=== PATIENT | female | born 1965 | race Caucasian/White ===

== ENCOUNTER 2022-07-24 08:00 | Outpatient (CLI) | payer OTHER, SELFPAY ==
--- NOTE | 2022-07-24 08:15 | MR_ITS ---
[address] [address] Phone:?[phone] Fax:?[phone] Referring Physician Information: Reilly Malhotra M.D. [id number] [facility] [address] Phone:?[phone] Fax:?[phone] Patient:Avila Carrion D.O.B:?1965 Sex:?Female Phone:?[phone] [facility] MRN:?[id number] Exam Date:?07/24/2022 ? EXAM: MRI EXAMINATION OF THE RIGHT SHOULDER CLINICAL INFORMATION: Right shoulder pain. No history of surgery to this area. Concern for rotator cuff tendon tear. TECHNICAL INFORMATION: Coronal STIR as well as axial, sagittal and coronal PD and T2-weighted images were acquired. INTERPRETATION: Bones: There is no Hill-Sachs impaction deformity. No other occult fracture or osseous contusion. No other bone marrow edema pattern. Rotator Cuff: Series 5 image 12 as well as series 8 images 5 and 6 demonstrate an irregular 4 mm low signal intensity focus within the mid supraspinatus tendon insertion. Signal heterogeneity is identified with slender intrasubstance partial tearing of the surrounding tendon fibers. Mild infraspinatus tendinopathy. The teres minor tendon is intact. Mild subscapularis tendinopathy. No appreciable rotator cuff muscle belly atrophy. Coracoacromial arch: There is no discrete subacromial osseous spur. The bony acromiohumeral interval is wedging 7 mm. There is no thickening identified of the coracoacromial ligament. Acromioclavicular joint: Mild/early AC joint DJD. No deformity of the underlying supraspinatus tendon. Moderate fluid and edema signal within the subacromial/subdeltoid bursa areas. Biceps tendon: The long head biceps tendon is intact and nondisplaced from the bicipital groove. No evidence for a tendon tear or appreciable changes of tendinopathy. Glenohumeral joint and labrum: No significant glenohumeral joint effusion. No discrete loose body within the joint. Osteochondral surfaces appear relatively preserved. No discrete SLAP tear. No other definite evidence for labral tear. No discrete paralabral cyst is identified. CONCLUSION: 1. There is a small and irregular low signal intensity focus within the mid supraspinatus tendon insertion in keeping with calcium hydroxyapatite deposition/calcific tendinitis. Tendinopathy with signal heterogeneity and foci of slender intrasubstance partial tearing of the directly surrounding tendon fibers. 2. Mild infraspinatus and subscapularis tendinopathy. 3. Borderline narrowed acromiohumeral interval. Moderate subacromial/subdeltoid bursitis. 4. Intact long head biceps tendon and without subluxation from the bicipital groove. 5. No appreciable glenohumeral chondromalacia. No glenohumeral joint effusion. KES Electronically signed on 07/24/2022 11:37:00 AM by Andrew Bhakta M.D.
== END 2022-07-24 08:01 | disposition home or self-care (01) ==
LOC: MRI 08:01
PROVIDERS: Visit Provider Orthopaedic Surgery Sports Medicine
DX: M25.511 Pain in right shoulder (principal); M77.8 Other enthesopathies, not elsewhere classified; M75.51 Bursitis of right shoulder
CPT/HCPCS: 73221

== ENCOUNTER 2022-09-07 09:38 | Outpatient (CLI) | payer OTHER, SELFPAY ==
[2022-09-07 11:33] LABS: Cholesterol* 259 mg/dL (90-199); Glucose* 75 mg/dL (60-115); Triglycerides* 130 mg/dL (40-149)
[2022-09-07 11:34] LABS: HDL Cholesterol* 87 mg/dL (>=50); LDL Cholesterol Calculated 146 mg/dL (<100)
== END 2022-09-07 09:39 | disposition home or self-care (01) ==
PROVIDERS: Visit Provider Obstetrics & Gynecology
DX: Z13.1 Encounter for screening for diabetes mellitus (principal); Z13.6 Encounter for screening for cardiovascular disorders
CPT/HCPCS: 80061; 82947

== ENCOUNTER 2022-10-31 14:37 | Outpatient (CLI) | payer OTHER, SELFPAY ==
--- NOTE | 2022-10-31 15:00 | CRLHL7_ITS ---
For Patients: As a result of the Cures Act, medical imaging exams and procedure reports are released immediately into your electronic medical record. You may view this report before your referring provider. If you have questions, please contact your health care provider. BILATERAL SCREENING MAMMOGRAM WITH COMPUTER-AIDED DETECTION AND TOMOSYNTHESIS TECHNIQUE: CC and MLO views were obtained. These mammographic images have been obtained using full-field digital technique. These mammographic images were interpreted with the benefit of computer-aided detection. Breast tomosynthesis was used in this interpretation. COMPARISON FILM: 10/04/21, 08/05/19, 07/31/18. FINDINGS: There are scattered areas of fibroglandular density. IMPRESSION: There is no radiographic evidence for malignancy. ASSESSMENT: BI-RADS Category 1: Negative RECOMMENDATION: Routine screening mammogram in 1 year. A lay language report of this examination will be provided to the patient. CJ VIDAL M.D. Diagnostic Radiologist [email or web address] ROSA/so Transcribed: 11/01/2022, 2:[address]/Dictated by: Cj Vidal MD @ 11/01/2022 8:36:00 AM (Electronically Signed)
== END 2022-10-31 14:38 | disposition home or self-care (01) ==
LOC: MAMMO 14:37
PROVIDERS: Visit Provider Obstetrics & Gynecology
DX: Z12.31 Encounter for screening mammogram for malignant neoplasm of breast (principal)
CPT/HCPCS: 77063; 77067

== ENCOUNTER 2024-09-01 09:24 | Outpatient (CLI) | payer OTHER, SELFPAY | END 2024-09-01 09:25 | disposition home or self-care (01) | LOC: NFLDREF 09:24 | PROVIDERS: Visit Provider Obstetrics & Gynecology | DX: Z13.220 Encounter for screening for lipoid disorders (principal) | CPT/HCPCS: 80061 ==

== ENCOUNTER 2024-09-05 07:57 | Outpatient (CLI) | payer OTHER, SELFPAY ==
--- NOTE | 2024-09-05 08:15 | CRLHL7_ITS ---
For Patients: As a result of the Century Cures Act, medical imaging exams and procedure reports are released immediately into your electronic medical record. You may view this report before your referring provider. If you have questions, please contact your health care provider. BILATERAL SCREENING MAMMOGRAM WITH COMPUTER-AIDED DETECTION AND TOMOSYNTHESIS TECHNIQUE: CC and MLO views were obtained. These mammographic images have been obtained using full-field digital technique. These mammographic images were interpreted with the benefit of computer-aided detection. Breast Tomosynthesis was used in this interpretation. COMPARISON FILM: 10/31/22, 10/04/21, 08/05/19. FINDINGS: The breasts are heterogeneously dense, which may obscure small masses. IMPRESSION: There is no radiographic evidence for malignancy. ASSESSMENT: BI-RADS Category 1: Negative RECOMMENDATION: Routine screening mammogram in 1 year. A lay language report of this examination will be provided to the patient. Cj Dodd M.D. Diagnostic Radiologist [email or web address] SP/Dictated by: Cj Dodd MD @ 09/05/2024 12:56:00 PM (Electronically Signed)
== END 2024-09-05 07:58 | disposition home or self-care (01) ==
LOC: MAMMO 07:58
PROVIDERS: Visit Provider Obstetrics & Gynecology
DX: Z12.31 Encounter for screening mammogram for malignant neoplasm of breast (principal); R92.333 Mammographic heterogeneous density, bilateral breasts
CPT/HCPCS: 77063; 77067